=== PATIENT | male | born 2000 | race African-American/Black ===

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

== ENCOUNTER 2019-04-29 03:40 | Emergency (ER) | payer SELFPAY ==
[~2019-04-29] VITALS: Ht 177.8 cm; Wt 59.0 kg
[2019-04-29] MEDS ORDERED: LORazepam 0.5 MG TAB PO ONE (04:30)
[2019-04-29] MEDS ORDERED: SODIUM CHLORIDE 0.9% 1,000 ML IV ONE (04:30)
[2019-04-29 04:32] LABS: Basophils # (auto) 0.1 uL; Eosinophils # (auto) 0 uL; Eosinophils % (auto) 0.3 % (0.0-7.0); Hematocrit 42.2 % (41.0-53.0); Hemoglobin 14.9 g/dL (13.5-17.5); Lymphocytes # (auto) 2.5 uL; Lymphocytes % (auto) 28.3 % (10.0-50.0); Mean Corpuscular Hemoglobin 32.1 pg (28.0-32.0); Mean Corpuscular Hgb Conc. 35.3 g/dL (32.0-36.0); Monocytes # (auto) 0.7 uL; Monocytes % (auto) 8.1 % (0.0-12.0); Neutrophils # (auto) 5.6 uL; Neutrophils % (auto) 62.3 % (37.0-80.0); Platelet Count (auto) 176 10^3/uL (140-450); Red Blood Cells 4.64 10^6/uL (4.5-5.90); Red Cell Distribution Width 13.1 % (11.8-14.3); White Blood Cell 8.9 10^3/uL (4.4-10.8)
[2019-04-29 04:34] LABS: Urine Bacteria NONE SEEN /hpf (None Seen); Urine Blood Negative /uL (Negative); Urine Specific Gravity 1.003 (1.001-1.035); Urine WBC 21 /hpf (0 - 3)
[2019-04-29 04:42] LABS: Albumin 4.3 g/dL (3.4-5.0); Anion Gap 10 (5-15); Blood Urea Nitrogen 6 mg/dL (7-18); Calcium 9.5 mg/dL (8.5-10.1); Carbon Dioxide 24 mmol/L (21-32); Chloride 105 mmol/L (98-107); Glucose 110 mg/dL (74-106); Sodium 139 mmol/L (136-145)
[2019-04-29 04:48] LABS: Alanine Aminotransferase 17 U/L (16-61); Alkaline Phosphatase 104 U/L (45-117); Aspartate Aminotransferase 15 U/L (15-37); BUN/Creatinine Ratio 6.4; Bilirubin, Total 0.6 mg/dL (0.2-1.0); GFR African American 133 mL/min; GFR Non-African American 110 mL/min; Total Protein 7.9 g/dL (6.4-8.2)
[2019-04-29 04:52] LABS: Amphetamine Screen, Urine NEGATIVE (NEGATIVE); Barbiturate Scree,Urine NEGATIVE (NEGATIVE); Benzodiazephine Screen, Urine NEGATIVE (NEGATIVE); Cannabinoid Screen, Urine NEGATIVE (NEGATIVE); Cocaine Screen, Urine NEGATIVE (NEGATIVE); Opiate Scree,Urine NEGATIVE (NEGATIVE); Phencyclidine Screen, Urine NEGATIVE (NEGATIVE)
[2019-04-29] MEDS ORDERED: cefTRIAXone 1GM/50ML D5W 50 ML IV ONE (08:00)
[2019-04-29] MEDS ORDERED: POTASSIUM EFFERVESENT TAB 25 MEQ PO ONE (08:00)
[2019-04-29] MEDS ORDERED: IPRATROPIUM BROM 0.5 MG/2.5ML INH SOL NEB ONE (08:30)
[2019-04-29] MEDS ORDERED: ALBUTEROL SULF 2.5 MG/0.5ML(0.5%) NEB SOLN NEB ONE (08:30)
[2019-04-29 09:43] VITALS: BP 118/44
== END 2019-04-29 10:06 | disposition home or self-care (01) ==
LOC: ER 03:44
DX: R07.89 Other chest pain (principal); E87.6 Hypokalemia; N39.0 Urinary tract infection, site not specified; F10.10 Alcohol abuse, uncomplicated; F12.10 Cannabis abuse, uncomplicated
CPT/HCPCS: 36415; 71045; 80053; 80307; 80320; 81001; 83735; 84484; 85025; 94640; 96365; 99284; J0696; J7611; J7644

== ENCOUNTER 2023-09-16 03:24 | Emergency (ER) | payer SELFPAY ==
[~2023-09-16] VITALS: Ht 182.9 cm; Wt 58.0 kg
[2023-09-16 05:16] VITALS: RESP 16; O2SAT 98
[2023-09-16 05:30] VITALS: BP 124/80; PULSE 66; RESP 20; TEMP 98; O2SAT 99
== END 2023-09-16 05:34 | disposition home or self-care (01) ==
LOC: EDUNIT# 03:24 → ER 03:24
DX: R06.00 Dyspnea, unspecified (principal); R07.89 Other chest pain
CPT/HCPCS: 71045